=== PATIENT | female | born 1955 | race African-American/Black ===

== ENCOUNTER 2016-04-24 10:54 | Outpatient (CLI) | payer MEDICARE ==
[2016-04-24 11:24] LABS: Hemoglobin A1c 5.6 % (4.0-6.0)
[2016-04-24 11:25] LABS: Cardiac Risk 2.5 (Less than 4.5)
== END 2016-04-24 10:55 | disposition home or self-care (01) ==
LOC: MADLABBHPM 10:54
PROVIDERS: ATTEND Family Medicine
DX: E55.9 Vitamin D deficiency, unspecified (principal); E11.40 Type 2 diabetes mellitus with diabetic neuropathy, unspecified
CPT/HCPCS: 36415; 80061; 82306; 83036

== ENCOUNTER 2016-08-21 09:54 | Outpatient (CLI) | payer MEDICARE ==
[2016-08-21 10:43] LABS: Hemoglobin A1c 5.8 % (4.0-6.0)
[2016-08-21 10:45] LABS: ALT (SGPT) 12 U/L (8-55); AST (SGOT) 14 U/L (5-34); Albumin 3.9 g/dL (3.4-4.8); Alkaline Phosphatase 50 U/L (40-150); Anion Gap 15 mmol/L (10-20); BUN (Urea Nitrogen) 27 mg/dL (9.8-20.1); Bilirubin, Total 0.4 mg/dL (0.2-1.2); Calc. Creatinine Clearance 0 mL/min (70-130); Calcium 9.7 mg/dL (7.8-10.44); Carbon Dioxide 27 mmol/L (23-31); Cardiac Risk 2.5 (Less than 4.5); Chloride 106 mmol/L (98-107); Cholesterol 179 mg/dl (< 200 Desired); Estimated GFR-MDRD 65; Globulin 3.6 g/dL (2.4-3.5); Glucose 88 mg/dL (80-115); HDL Cholesterol 72 mg/dL (>60 Neg Risk); LDL Cholesterol, Calculated 93 mg/dL; Potassium 4.6 mmol/L (3.5-5.1); Protein, Total 7.5 g/dL (6.0-8.3); Sodium 143 mmol/L (136-145); Triglycerides 71 mg/dL (Less than 150)
[2016-08-21 18:17] LABS: Creatinine, Urine 60.18 mg/dL (47-110); Microalbumin Urine Less than 1.0 mg/dL (0.5-50.0); Microalbumin/Creat Ratio 16.6 mg/g (Less than 30)
== END 2016-08-21 09:55 | disposition home or self-care (01) ==
LOC: MADLABBHPM 09:54
PROVIDERS: ATTEND Family Medicine
DX: E11.40 Type 2 diabetes mellitus with diabetic neuropathy, unspecified (principal)
CPT/HCPCS: 36415; 80053; 80061; 82043; 83036

== ENCOUNTER 2018-02-18 20:13 | Emergency (ER) | payer MEDICARE | END 2018-02-18 20:38 | disposition home or self-care (01) | LOC: MADERS 20:13 | DX: G89.29 Other chronic pain (principal); M79.642 Pain in left hand; E11.9 Type 2 diabetes mellitus without complications; I10 Essential (primary) hypertension | CPT/HCPCS: 99281 ==

== ENCOUNTER 2019-12-12 13:19 | Emergency (ER) | payer MEDICARE ==
[2019-12-12 13:58] LABS: Bilirubin Negative (Negative); Blood, Urine Negative (Negative); Clarity Clear (Clear); Glucose, Urine (Dipstick) Negative (Negative); Ketone, Urine Negative (Negative); Leukocyte Negative (Negative); Nitrite Negative (Negative); Protein, Urine (Dipstick) Negative (Neg-Trace); Specific Gravity, Urine 1.025 (1.005-1.030); Urobilinogen 0.2 mg/dL (Less than 2)
[2019-12-12] MEDS ORDERED: Ketorolac Tromethamine 30 MG/ML VIAL ONE (14:21)
== END 2019-12-12 14:41 | disposition home or self-care (01) ==
LOC: MADERS 13:19
DX: M62.830 Muscle spasm of back (principal); E78.5 Hyperlipidemia, unspecified; E78.00 Pure hypercholesterolemia, unspecified; E11.9 Type 2 diabetes mellitus without complications; I10 Essential (primary) hypertension; Z79.82 Long term (current) use of aspirin; Z79.84 Long term (current) use of oral hypoglycemic drugs; Z79.899 Other long term (current) drug therapy
CPT/HCPCS: 81003; 96372; 99283; J1885

== ENCOUNTER 2019-12-24 11:18 | Outpatient (CLI) | payer MEDICARE ==
--- NOTE | 2019-12-24 11:41 | RAD ---
XR Lumbar Spine 2 Or 3 View HISTORY: Acute back pain FINDINGS: Degenerative changes are present. No acute fracture, subluxation or bony destruction is seen.
== END 2019-12-24 11:19 | disposition home or self-care (01) ==
LOC: MADRAD 11:18
PROVIDERS: ATTEND Family Medicine
DX: M54.42 Lumbago with sciatica, left side (principal)
CPT/HCPCS: 72100

== ENCOUNTER 2020-02-07 09:43 | Emergency (ER) | payer MEDICARE ==
[2020-02-08 00:33] LABS: SARS-CoV-2 MS2 Positive; SARS-CoV-2 N Gene Negative; SARS-CoV-2 S Gene Negative; SARS-CoV-2 by NAA Not Detected (NotDetected); SARS-CoV-2 orf1ab Negative
== END 2020-02-07 10:17 | disposition home or self-care (01) ==
LOC: MADERS 09:43
DX: Z20.828 Contact with and (suspected) exposure to other viral communicable diseases (principal); M54.5 Low back pain; E11.9 Type 2 diabetes mellitus without complications; E78.5 Hyperlipidemia, unspecified; I10 Essential (primary) hypertension; E78.00 Pure hypercholesterolemia, unspecified; Z79.899 Other long term (current) drug therapy; Z79.82 Long term (current) use of aspirin; Z79.84 Long term (current) use of oral hypoglycemic drugs
CPT/HCPCS: 87635; 99281; U0003

== ENCOUNTER 2020-05-10 19:25 | Emergency (ER) | payer MEDICARE ==
[2020-05-10] MEDS ORDERED: Acetaminophen 500 MG TAB ONE (20:47)
[2020-05-10] MEDS ORDERED: Ibuprofen 800 MG TAB ONE (20:47)
[2020-05-10 20:57] LABS: ALT (SGPT) 11 U/L (8-55); AST (SGOT) 21 U/L (5-34); Albumin 3.9 g/dL (3.4-4.8); Alkaline Phosphatase 51 U/L (40-110); Anion Gap 18 mmol/L (10-20); BUN (Urea Nitrogen) 35 mg/dL (9.8-20.1); Bilirubin, Total 0.5 mg/dL (0.2-1.2); Calc. Creatinine Clearance 0 mL/min (70-130); Calcium 8.4 mg/dL (7.8-10.44); Carbon Dioxide 23 mmol/L (23-31); Chloride 100 mmol/L (98-107); Globulin 3.8 g/dL (2.4-3.5); Glucose 121 mg/dL (80-115); Potassium 4.1 mmol/L (3.5-5.1); Protein, Total 7.7 g/dL (5.8-8.1); Sodium 137 mmol/L (136-145)
[2020-05-10 20:59] LABS: #Lymphocytes 1.2 thou/uL (1.20-3.40); #Monocytes 0.6 thou/uL (0.11-0.59); %Basophils 0.8 % (0.0-1.0); %Eosinophils 0.3 % (0.0-10.0); %Lymphocytes 19.9 % (21.0-51.0); %Monocytes 10.8 % (0.0-10.0); %Neutrophils 68.1 % (42.0-75.0); Hemoglobin 12.7 g/dL (12.0-16.0); Mean Corpuscular HGB CONC 30.9 g/dL (32.0-36.0); Mean Corpuscular Hemoglobin 23.8 pg (27.0-31.0); Mean Corpuscular Volume 77.1 fL (78.0-98.0); Mean Platelet Volume 8.8 fL (7.4-10.4); Platelet Count 200 thou/uL (130-400); Platelet Morphology Comment Appears Adequate; RBC Distribution Width 13.7 % (11.5-14.5); RBC Morphology Normal; Red Blood Cell (RBC) Count 5.34 mill/uL (4.20-5.40); White Blood Cell (WBC) Count 5.8 thou/uL (4.8-10.8)
[2020-05-10] MEDS ORDERED: Sodium Chloride 0.9% 250 ML 250 ML ONE ×2 (21:03→22:29)
[2020-05-10] MEDS ORDERED: Sodium Chloride 0.9% 2,000 ML ONE (21:04)
--- NOTE | 2020-05-10 21:42 | RAD ---
PORTABLE CHEST ONE VIEW: 05/10/20 HISTORY: Possible COVID. FINDINGS: Comparison is made to exam of 03/29/05. FINDINGS/IMPRESSION: The heart size is normal. The aorta is tortuous. There is evidence of old granulomatous disease. No l obar consolidation, pneumothoraces, or pleural effusions are seen. There is mild atelectatic change w ith scarring of the left lung base. POS: [facility]
[2020-05-10] MEDS ORDERED: Azithromycin 500 MG VIAL ONE (22:29)
[2020-05-10] MEDS ORDERED: Sodium Chloride 0.9% 500 ML ONE (22:29)
[2020-05-10] MEDS ORDERED: cefTRIAXone\\ROCEPHIN 2 GM VIAL ONE (22:30)
[2020-05-10 22:53] LABS: Bilirubin Small (Negative); Blood, Urine Negative (Negative); Clarity Slightly Cloudy (Clear); Glucose, Urine (Dipstick) Negative (Negative); Ketone, Urine Negative (Negative); Leukocyte Small (Negative); Nitrite Negative (Negative); Protein, Urine (Dipstick) 30 mg/dL (Neg-Trace)
[2020-05-10 22:58] LABS: Bacteria/HPF 1+ HPF (None Seen); RBC/HPF 0-3 HPF (0-3)
[2020-05-10 22:59] LABS: Mucous/LPF 2+ LPF (<2+)
[2020-05-11 00:01] LABS: SARS-CoV-2 NAA Rapid Test DETECTED (NotDetected)
== END 2020-05-11 01:17 | disposition short-term general hospital (02) ==
LOC: MADERS 19:25
DX: A41.89 Other specified sepsis (principal); U07.1 COVID-19; E78.5 Hyperlipidemia, unspecified; E78.00 Pure hypercholesterolemia, unspecified; E11.40 Type 2 diabetes mellitus with diabetic neuropathy, unspecified; I10 Essential (primary) hypertension; Z79.84 Long term (current) use of oral hypoglycemic drugs; Z79.899 Other long term (current) drug therapy; Z87.19 Personal history of other diseases of the digestive system; Z79.82 Long term (current) use of aspirin
CPT/HCPCS: 0240U; 71045; 80053; 83605; 84484; 85025; 87040; 94760; 36415; 81003; 81015; 87086; 96365; 96375; J0456; J0696; J7030; J7050

== ENCOUNTER 2020-05-31 09:55 | Outpatient (CLI) | payer MEDICARE | END 2020-05-31 09:56 | disposition home or self-care (01) | LOC: MADRAD 09:55 | PROVIDERS: ATTEND Family Medicine | DX: U07.1 COVID-19 (principal); J12.82 Pneumonia due to coronavirus disease 2019 | CPT/HCPCS: 71046 ==

== ENCOUNTER 2020-09-23 19:52 | Emergency (ER) | payer MEDICARE ==
[2020-09-23] MEDS ORDERED: Sodium Chloride 0.9% 1,000 ML ONE (20:31)
[2020-09-23] MEDS ORDERED: Metoclopramide HCl 10 MG/2 ML VIAL ONE (20:31)
[2020-09-23] MEDS ORDERED: diphenhydrAMINE 50 MG/ML VIAL ONE (20:31)
[2020-09-23] MEDS ORDERED: Ketorolac Tromethamine 30 MG/ML VIAL ONE (20:31)
[2020-09-23 21:08] LABS: Bilirubin Negative (Negative); Blood, Urine Negative (Negative); Clarity Clear (Clear); Glucose, Urine (Dipstick) Negative (Negative); Ketone, Urine Negative (Negative); Leukocyte Negative (Negative); Nitrite Negative (Negative); Protein, Urine (Dipstick) Negative (Neg-Trace); Specific Gravity, Urine 1.015 (1.005-1.030); Urobilinogen 0.2 mg/dL (Less than 2)
[2020-09-23] MEDS ORDERED: Orphenadrine Citrate 60 MG/2 ML VIAL ONE (21:53)
== END 2020-09-23 22:29 | disposition home or self-care (01) ==
LOC: MADERS 19:52
DX: M54.5 Low back pain (principal); R51.9 Headache, unspecified; K21.9 Gastro-esophageal reflux disease without esophagitis; E78.5 Hyperlipidemia, unspecified; E11.9 Type 2 diabetes mellitus without complications; I10 Essential (primary) hypertension; Z79.899 Other long term (current) drug therapy
CPT/HCPCS: 81003; 96372; 96374; 96375; J1200; J1885; J2360; J2765; J7050

== ENCOUNTER 2020-10-15 21:25 | Emergency (ER) | payer MEDICARE ==
[2020-10-15] MEDS ORDERED: Azithromycin 250 MG TAB ONE (22:24)
[2020-10-16 14:36] LABS: SARS-CoV-2 PCR by NAA Not Detected (NotDetected)
== END 2020-10-15 22:40 | disposition home or self-care (01) ==
LOC: MADERS 21:25
DX: J32.9 Chronic sinusitis, unspecified (principal); R05 Cough; Z20.822 Contact with and (suspected) exposure to COVID-19; K21.9 Gastro-esophageal reflux disease without esophagitis; E78.00 Pure hypercholesterolemia, unspecified; E78.5 Hyperlipidemia, unspecified; E11.9 Type 2 diabetes mellitus without complications; I10 Essential (primary) hypertension; Z79.899 Other long term (current) drug therapy; Z79.84 Long term (current) use of oral hypoglycemic drugs; Z79.82 Long term (current) use of aspirin
CPT/HCPCS: 99283; U0003; U0005

== ENCOUNTER 2020-12-03 12:42 | Outpatient (CLI) | payer MEDICARE ==
[2020-12-03 14:06] LABS: ALT (SGPT) 12 U/L (8-55); AST (SGOT) 12 U/L (5-34); Albumin 4.1 g/dL (3.4-4.8); Alkaline Phosphatase 66 U/L (40-110); Anion Gap 15 mmol/L (10-20); BUN (Urea Nitrogen) 21 mg/dL (9.8-20.1); Bilirubin, Total 0.3 mg/dL (0.2-1.2); Calc. Creatinine Clearance 0 mL/min (70-130); Calcium 9.9 mg/dL (7.8-10.44); Carbon Dioxide 29 mmol/L (23-31); Cardiac Risk 2.6 (Less than 4.5); Chloride 103 mmol/L (98-107); Cholesterol 176 mg/dl (< 200 Desired); Globulin 3.5 g/dL (2.4-3.5); Glucose 88 mg/dL (80-115); HDL Cholesterol 68 mg/dL (>60 Neg Risk); LDL Cholesterol, Calculated 96 mg/dL; Potassium 4.7 mmol/L (3.5-5.1); Protein, Total 7.6 g/dL (5.8-8.1); Sodium 142 mmol/L (136-145); Triglycerides 58 mg/dL (Less than 150); Uric Acid 7.7 mg/dL (2.6-6.0)
[2020-12-04 11:51] LABS: Hemoglobin A1c 6.2 % (4.0-6.0)
== END 2020-12-03 12:43 | disposition home or self-care (01) ==
LOC: MADLAB 12:42
PROVIDERS: ATTEND Family Medicine
DX: M25.571 Pain in right ankle and joints of right foot (principal); E11.9 Type 2 diabetes mellitus without complications; E78.2 Mixed hyperlipidemia; E55.9 Vitamin D deficiency, unspecified
CPT/HCPCS: 36415; 80053; 80061; 82306; 83036; 84550

== ENCOUNTER 2021-07-03 08:58 | Emergency (ER) | payer MEDICARE ==
[2021-07-03] MEDS ORDERED: methylPREDNISolone Sod Succ/PF 125 MG/2 ML VIAL ONE (09:49)
[2021-07-03 10:25] LABS: #Basophils 0.1 thou/uL (0.0-0.2); #Eosinphils 0.2 thou/uL (0.0-0.7); #Lymphocytes 1.6 thou/uL (1.20-3.40); #Monocytes 0.6 thou/uL (0.11-0.59); #Neutrophils 5.2 thou/uL (1.40-6.50); %Basophils 0.8 % (0.0-1.0); %Lymphocytes 21.3 % (21.0-51.0); %Monocytes 7.2 % (0.0-10.0); %Neutrophils 67.7 % (42.0-75.0); Hemoglobin 11.8 g/dL (12.0-16.0); Mean Corpuscular HGB CONC 31.7 g/dL (32.0-36.0); Mean Corpuscular Hemoglobin 25.5 pg (27.0-31.0); Mean Corpuscular Volume 80.3 fL (78.0-98.0); Mean Platelet Volume 10.7 fL (7.4-10.4); Platelet Count 261 thou/uL (130-400); RBC Distribution Width 15.2 % (11.5-14.5); Red Blood Cell (RBC) Count 4.63 mill/uL (4.20-5.40); White Blood Cell (WBC) Count 7.7 thou/uL (4.8-10.8)
[2021-07-03 10:43] LABS: ALT (SGPT) 11 U/L (8-55); AST (SGOT) 15 U/L (5-34); Albumin 3.9 g/dL (3.4-4.8); Alkaline Phosphatase 61 U/L (40-110); Anion Gap 18 mmol/L (10-20); BUN (Urea Nitrogen) 28 mg/dL (9.8-20.1); Bilirubin, Total 0.3 mg/dL (0.2-1.2); Calc. Creatinine Clearance 0 mL/min (70-130); Calcium 8.8 mg/dL (7.8-10.44); Carbon Dioxide 23 mmol/L (23-31); Chloride 105 mmol/L (98-107); Globulin 3.6 g/dL (2.4-3.5); Glucose 108 mg/dL (80-115); Magnesium 2.1 mg/dL (1.6-2.6); Potassium 4.9 mmol/L (3.5-5.1); Protein, Total 7.5 g/dL (5.8-8.1); Sodium 141 mmol/L (136-145)
== END 2021-07-03 11:43 | disposition home or self-care (01) ==
LOC: MADERS 08:58
DX: J45.901 Unspecified asthma with (acute) exacerbation (principal); E11.9 Type 2 diabetes mellitus without complications; K21.9 Gastro-esophageal reflux disease without esophagitis; I10 Essential (primary) hypertension
CPT/HCPCS: 71045; 80053; 83735; 83880; 84484; 85025; 93005; 96374; J2930; J7620

== ENCOUNTER 2021-09-09 09:11 | Emergency (ER) | payer MEDICARE | END 2021-09-09 09:50 | disposition home or self-care (01) | LOC: MADERS 09:11 | DX: M77.12 Lateral epicondylitis, left elbow (principal); M54.50 Low back pain, unspecified; G89.29 Other chronic pain; E11.9 Type 2 diabetes mellitus without complications; K21.9 Gastro-esophageal reflux disease without esophagitis; E78.5 Hyperlipidemia, unspecified; I10 Essential (primary) hypertension | CPT/HCPCS: 99283 ==

== ENCOUNTER 2021-09-17 12:15 | Outpatient (CLI) | payer MEDICARE ==
[2021-09-17 13:22] LABS: Anion Gap 13 mmol/L (10-20); BUN (Urea Nitrogen) 17 mg/dL (9.8-20.1); Calc. Creatinine Clearance 0 mL/min (70-130); Calcium 9.4 mg/dL (7.8-10.44); Carbon Dioxide 29 mmol/L (23-31); Chloride 103 mmol/L (98-107); Estimated GFR 61; Glucose 95 mg/dL (80-115); Potassium 4.1 mmol/L (3.5-5.1); Sodium 141 mmol/L (136-145)
== END 2021-09-17 12:16 | disposition home or self-care (01) ==
LOC: MADLAB 12:15
PROVIDERS: ATTEND Family Medicine
DX: M54.6 Pain in thoracic spine (principal); M51.36 Other intervertebral disc degeneration, lumbar region
CPT/HCPCS: 36415; 72100; 80048

== ENCOUNTER 2021-11-04 17:24 | Emergency (ER) | payer MEDICARE ==
[2021-11-04] MEDS ORDERED: Sodium Chloride 0.9% 1,000 ML ONE (18:11)
[2021-11-04 18:22] LABS: Bilirubin Negative (Negative); Blood, Urine Negative (Negative); Clarity Clear (Clear); Glucose, Urine (Dipstick) Negative (Negative); Ketone, Urine Negative (Negative); Leukocyte Negative (Negative); Nitrite Negative (Negative); Protein, Urine (Dipstick) Negative (Neg-Trace)
[2021-11-04 18:24] LABS: Amphetamine Not Detected (NotDetected); Barbiturates Screen Not Detected (NotDetected); Benzodiazepine Screen Not Detected (NotDetected); Cocaine Metabolite Screen Not Detected (NotDetected); Medtox Control Line Valid? VALID (VALID); Methadone Not Detected (NotDetected); Methamphetamine Not Detected (NotDetected); Opiate Screen Not Detected (NotDetected); Oxycodone Screen Not Detected (NotDetected); Phencyclidine (PCP) Not Detected (NotDetected); THC/Cannabinoid Screen Not Detected (NotDetected); Tricyclic Screen Not Detected (NotDetected)
[2021-11-04 18:30] LABS: ALT (SGPT) 12 U/L (8-55); AST (SGOT) 13 U/L (5-34); Acetaminophen Less than 10.0 mcg/mL (10.0-30.0); Albumin 3.8 g/dL (3.4-4.8); Alcohol Less than 10 mg/dL (Less than 10); Alkaline Phosphatase 60 U/L (40-110); Anion Gap 14 mmol/L (10-20); BUN (Urea Nitrogen) 20 mg/dL (9.8-20.1); Bilirubin, Total 0.3 mg/dL (0.2-1.2); Calc. Creatinine Clearance 0 mL/min (70-130); Calcium 9.4 mg/dL (7.8-10.44); Carbon Dioxide 27 mmol/L (23-31); Chloride 102 mmol/L (98-107); Estimated GFR 59; Globulin 4.2 g/dL (2.4-3.5); Glucose 106 mg/dL (80-115); Lipase 36 U/L (8-78); Potassium 3.9 mmol/L (3.5-5.1); Salicylate Less than 8.0 mg/dL (15.0-30.0); Sodium 139 mmol/L (136-145)
[2021-11-04 18:39] LABS: Band 3 % (5-11); Eosinophils 3 % (0-10); Giant Platelets SLIGHT; Hemoglobin 11.8 g/dL (12.0-16.0); Large Platelets SLIGHT; Lymphocytes 18 % (21-51); MDiff Complete? YES; Mean Corpuscular HGB CONC 29.6 g/dL (32.0-36.0); Mean Corpuscular Hemoglobin 23.5 pg (27.0-31.0); Mean Corpuscular Volume 79.5 fL (78.0-98.0); Mean Platelet Volume 11.2 fL (7.4-10.4); Monocytes 3 % (0-10); Neutrophil 65 % (42-75); Platelet Count 235 thou/uL (130-400); Platelet Morphology Comment Appears Adequate; RBC Distribution Width 14.4 % (11.5-14.5); Reactive Lymphocytes 8 % (0-10); Red Blood Cell (RBC) Count 5.01 mill/uL (4.20-5.40); Target Cells SLIGHT = 2-5 cells (100X) (0-1/hpf); White Blood Cell (WBC) Count 6.6 thou/uL (4.8-10.8)
== END 2021-11-04 20:05 | disposition home or self-care (01) ==
LOC: MADERS 17:24
DX: E86.0 Dehydration (principal); M54.50 Low back pain, unspecified; I95.9 Hypotension, unspecified; I10 Essential (primary) hypertension; K21.9 Gastro-esophageal reflux disease without esophagitis; E11.42 Type 2 diabetes mellitus with diabetic polyneuropathy; E78.00 Pure hypercholesterolemia, unspecified; M10.9 Gout, unspecified; J45.909 Unspecified asthma, uncomplicated; F17.210 Nicotine dependence, cigarettes, uncomplicated; Z79.82 Long term (current) use of aspirin; Z79.84 Long term (current) use of oral hypoglycemic drugs; Z79.899 Other long term (current) drug therapy
CPT/HCPCS: 71045; 80053; 80306; 80307; 81003; 83605; 83690; 84443; 85025; 87040; 94760; 96360; J7050

== ENCOUNTER 2022-05-20 18:11 | Emergency (ER) | payer MEDICARE | END 2022-05-20 19:57 | disposition home or self-care (01) | LOC: MADERS 18:11 | DX: M67.824 Other specified disorders of tendon, left elbow (principal); E11.9 Type 2 diabetes mellitus without complications; K21.9 Gastro-esophageal reflux disease without esophagitis; I10 Essential (primary) hypertension; E78.00 Pure hypercholesterolemia, unspecified; F17.220 Nicotine dependence, chewing tobacco, uncomplicated; Z79.899 Other long term (current) drug therapy; Z79.82 Long term (current) use of aspirin; Z79.84 Long term (current) use of oral hypoglycemic drugs ==

== ENCOUNTER 2022-06-27 16:27 | Emergency (ER) | payer MEDICARE ==
[2022-06-27] MEDS ORDERED: AMOXicillin 250 MG CAP ONE (17:26)
== END 2022-06-27 17:37 | disposition home or self-care (01) ==
LOC: MADERS 16:27
DX: J02.0 Streptococcal pharyngitis (principal); B34.9 Viral infection, unspecified; I10 Essential (primary) hypertension; E11.42 Type 2 diabetes mellitus with diabetic polyneuropathy; F17.220 Nicotine dependence, chewing tobacco, uncomplicated; K21.9 Gastro-esophageal reflux disease without esophagitis; E78.00 Pure hypercholesterolemia, unspecified; M10.9 Gout, unspecified; J45.909 Unspecified asthma, uncomplicated; Z79.82 Long term (current) use of aspirin; Z79.84 Long term (current) use of oral hypoglycemic drugs; Z79.899 Other long term (current) drug therapy
CPT/HCPCS: 99283

== ENCOUNTER 2022-07-20 13:53 | Emergency (ER) | payer MEDICARE ==
[2022-07-20 15:33] LABS: #Basophils 0.1 thou/uL (0.0-0.2); #Eosinphils 0.2 thou/uL (0.0-0.7); #Lymphocytes 1.7 thou/uL (1.20-3.40); #Monocytes 0.6 thou/uL (0.11-0.59); #Neutrophils 4.9 thou/uL (1.40-6.50); %Basophils 0.8 % (0.0-1.0); %Eosinophils 2.5 % (0.0-10.0); %Monocytes 8.4 % (0.0-10.0); %Neutrophils 65.3 % (42.0-75.0); Hemoglobin 10.9 g/dL (12.0-16.0); Mean Corpuscular HGB CONC 31.8 g/dL (32.0-36.0); Mean Corpuscular Hemoglobin 25.5 pg (27.0-31.0); Mean Corpuscular Volume 80.1 fl (78.0-98.0); Mean Platelet Volume 10.4 fL (7.4-10.4); Platelet Count 250 10x3/uL (130-400); Red Blood Cell (RBC) Count 4.28 mill/uL (4.20-5.40); White Blood Cell (WBC) Count 7.5 10x3/uL (4.8-10.8)
[2022-07-20 15:45] LABS: ALT (SGPT) Less than 7 U/L (8-55); AST (SGOT) 11 U/L (5-34); Albumin 3.5 g/dL (3.4-4.8); Alkaline Phosphatase 51 U/L (40-110); Anion Gap 14 mmol/L (10-20); BUN (Urea Nitrogen) 18 mg/dL (9.8-20.1); Bilirubin, Total 0.3 mg/dL (0.2-1.2); Calc. Creatinine Clearance 0 mL/min (70-130); Calcium 9.5 mg/dL (7.8-10.44); Carbon Dioxide 25 mmol/L (23-31); Chloride 103 mmol/L (98-107); Estimated GFR 48; Glucose 104 mg/dL (80-115); Potassium 4.1 mmol/L (3.5-5.1); Protein, Total 7.5 g/dL (5.8-8.1); Sodium 138 mmol/L (136-145)
[2022-07-20] MEDS ORDERED: Albuterol 2.5 MG/0.5 ML NEB ONE ×2 (16:04→16:05)
== END 2022-07-20 16:45 | disposition home or self-care (01) ==
LOC: MADERS 13:53
DX: D64.9 Anemia, unspecified (principal); K92.1 Melena; E11.9 Type 2 diabetes mellitus without complications; K21.9 Gastro-esophageal reflux disease without esophagitis; I10 Essential (primary) hypertension; F17.220 Nicotine dependence, chewing tobacco, uncomplicated; Z79.899 Other long term (current) drug therapy; Z79.82 Long term (current) use of aspirin; Z79.84 Long term (current) use of oral hypoglycemic drugs
CPT/HCPCS: 36415; 71045; 80053; 84484; 85025; 93005; 94760; J7611

== ENCOUNTER 2023-03-03 12:29 | Emergency (ER) | payer MEDICARE ==
[2023-03-03] MEDS ORDERED: Ketorolac Tromethamine 30 MG/ML VIAL ONE (12:51)
== END 2023-03-03 13:13 | disposition home or self-care (01) ==
LOC: MADERS 12:29
DX: S73.101A Unspecified sprain of right hip, initial encounter (principal); M16.9 Osteoarthritis of hip, unspecified; I10 Essential (primary) hypertension; K21.9 Gastro-esophageal reflux disease without esophagitis; G62.9 Polyneuropathy, unspecified; F17.220 Nicotine dependence, chewing tobacco, uncomplicated; X58.XXXA Exposure to other specified factors, initial encounter; Z79.82 Long term (current) use of aspirin; Z79.84 Long term (current) use of oral hypoglycemic drugs; Z79.899 Other long term (current) drug therapy
CPT/HCPCS: 96372; 99283; J1885

== ENCOUNTER 2023-04-14 20:57 | Emergency (ER) | payer MEDICARE ==
[2023-04-14] MEDS ORDERED: predniSONE 20 MG TAB ONE (22:17)
[2023-04-14] MEDS ORDERED: Albuterol 200 PUFF (6.7GM INHALER) ONE (22:17)
[2023-04-14] MEDS ORDERED: Benzonatate 100 MG CAP ONE (22:17)
== END 2023-04-14 22:48 | disposition home or self-care (01) ==
LOC: MADERS 20:57
DX: J45.901 Unspecified asthma with (acute) exacerbation (principal); J06.9 Acute upper respiratory infection, unspecified; I10 Essential (primary) hypertension; E78.5 Hyperlipidemia, unspecified; K21.9 Gastro-esophageal reflux disease without esophagitis; E11.42 Type 2 diabetes mellitus with diabetic polyneuropathy; F17.220 Nicotine dependence, chewing tobacco, uncomplicated; Z79.82 Long term (current) use of aspirin; Z79.899 Other long term (current) drug therapy
CPT/HCPCS: 71046; J7512

== ENCOUNTER 2024-03-19 03:47 | Emergency (ER) | payer MEDICARE ==
[2024-03-19] MEDS ORDERED: cefTRIAXone (ROCEPHIN) 1 GM VIAL ONE (05:01)
[2024-03-19] MEDS ORDERED: Ipratropium/Albuterol 3 ML NEB ONE (05:01)
[2024-03-19] MEDS ORDERED: Lidocaine 1% PF 5 ML VIAL ONE (05:01)
== END 2024-03-19 05:43 | disposition home or self-care (01) ==
LOC: MADERS 03:47
DX: J18.9 Pneumonia, unspecified organism (principal); K21.9 Gastro-esophageal reflux disease without esophagitis; I10 Essential (primary) hypertension; E11.40 Type 2 diabetes mellitus with diabetic neuropathy, unspecified; F17.220 Nicotine dependence, chewing tobacco, uncomplicated; Z79.82 Long term (current) use of aspirin; Z79.84 Long term (current) use of oral hypoglycemic drugs; Z79.899 Other long term (current) drug therapy
CPT/HCPCS: 71046; 87081; 87428; 87430; 96372; J0696; J7620

== ENCOUNTER 2024-04-01 20:21 | Emergency (ER) | payer MEDICARE ==
[2024-04-01] MEDS ORDERED: Benzonatate 100 MG CAP ONE (21:13)
[2024-04-01 21:46] LABS: Band 1 % (5-11); Eosinophils 1 % (0-10); Hematocrit 38.5 % (36.0-47.0); Hemoglobin 11.6 g/dL (12.0-16.0); Lymphocytes 17 % (21-51); MDiff Complete? YES; Mean Corpuscular HGB CONC 30.1 g/dL (32.0-36.0); Mean Corpuscular Hemoglobin 24.4 pg (27.0-31.0); Mean Corpuscular Volume 81.2 fl (78.0-98.0); Mean Platelet Volume 8.5 fL (7.4-10.4); Monocytes 8 % (0-10); Neutrophil 73 % (42-75); Platelet Adequacy Comment Appears Adequate; Platelet Count 311 10x3/uL (130-400); RBC Distribution Width 14.3 % (11.5-14.5); Red Blood Cell (RBC) Count 4.74 mill/uL (4.20-5.40); Target Cells SLIGHT = 2-5 cells (100X) (0-1/hpf); White Blood Cell (WBC) Count 9.2 10x3/uL (4.8-10.8)
[2024-04-01 21:52] LABS: Troponin I Less than 0.010 ng/mL (< 0.028)
[2024-04-01 22:01] LABS: ALT (SGPT) 8 U/L (Less than 34); AST (SGOT) 12 U/L (11-34); Albumin 3.8 g/dL (3.1-4.5); Alkaline Phosphatase 60 U/L (40-110); Anion Gap 14 mmol/L (10-20); BUN (Urea Nitrogen) 17 mg/dL (9.8-20.1); Bilirubin, Total 0.2 mg/dL (0.3-1.2); Calc. Creatinine Clearance 0 mL/min (70-130); Calcium 9.2 mg/dL (7.8-10.44); Carbon Dioxide 27 mmol/L (23-31); Chloride 101 mmol/L (98-107); Estimated GFR 54; Globulin 4.1 g/dL (2.4-3.5); Glucose 103 mg/dL (80-115); Potassium 4.2 mmol/L (3.5-5.1); Protein, Total 7.9 g/dL (5.8-8.1); Sodium 138 mmol/L (136-145)
== END 2024-04-01 22:07 | disposition home or self-care (01) ==
LOC: MADERS 20:21
DX: J45.901 Unspecified asthma with (acute) exacerbation (principal); E11.42 Type 2 diabetes mellitus with diabetic polyneuropathy; K21.9 Gastro-esophageal reflux disease without esophagitis; Z79.84 Long term (current) use of oral hypoglycemic drugs; Z79.51 Long term (current) use of inhaled steroids; Z79.899 Other long term (current) drug therapy
CPT/HCPCS: 36415; 71046; 80053; 84484; 85025; 87428; 93005

== ENCOUNTER 2024-10-23 10:05 | Emergency (ER) | payer OTHER ==
[2024-10-23] MEDS ORDERED: Acetaminophen 500 MG TAB ONE (10:24)
== END 2024-10-23 10:25 | disposition home or self-care (01) ==
LOC: MADERS 10:05
DX: M25.562 Pain in left knee (principal); M25.561 Pain in right knee; R21 Rash and other nonspecific skin eruption; I10 Essential (primary) hypertension; M10.9 Gout, unspecified; E11.40 Type 2 diabetes mellitus with diabetic neuropathy, unspecified; E78.5 Hyperlipidemia, unspecified; K21.9 Gastro-esophageal reflux disease without esophagitis; J45.909 Unspecified asthma, uncomplicated; Z79.899 Other long term (current) drug therapy; Z79.82 Long term (current) use of aspirin; Z79.84 Long term (current) use of oral hypoglycemic drugs; Z79.51 Long term (current) use of inhaled steroids
CPT/HCPCS: 99283

== ENCOUNTER 2024-11-28 09:53 | Emergency (ER) | payer OTHER ==
[2024-11-28] MEDS ORDERED: Cyclobenzaprine 10 MG TAB ONE (10:27)
[2024-11-28] MEDS ORDERED: Ketorolac Tromethamine 30 MG (1 mL) VIAL ONE (10:27)
[2024-11-28] MEDS ORDERED: Gabapentin 100 MG CAP ONE (11:32)
== END 2024-11-28 12:58 | disposition home or self-care (01) ==
LOC: MADERS 09:53
DX: S16.1XXA Strain of muscle, fascia and tendon at neck level, initial encounter (principal); M25.811 Other specified joint disorders, right shoulder; K21.9 Gastro-esophageal reflux disease without esophagitis; I10 Essential (primary) hypertension; E11.42 Type 2 diabetes mellitus with diabetic polyneuropathy; Z79.84 Long term (current) use of oral hypoglycemic drugs; Z79.899 Other long term (current) drug therapy; X58.XXXA Exposure to other specified factors, initial encounter
CPT/HCPCS: 72125; J1885; J2270; 96372